=== PATIENT | male | born 1945 | race African-American/Black ===

== ENCOUNTER 2016-10-03 09:25 | Emergency (ER) | payer OTHER ==
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
[2016-10-03] MEDS ORDERED: ACETAMINOPHEN 500 MG TABLET (FP) PO ONE (09:41)
[2016-10-03] MEDS ORDERED: levETIRAcetam 500 MG/5 ML INJECTION VIAL IVPB ONE ×2 (09:41)
[2016-10-03 09:54] VITALS: TEMP 98.9; BMI 27.5
[2016-10-03] MEDS ORDERED: ACETAMINOPHEN 325 MG TABLET (FP) ONE (09:59)
[2016-10-03 10:13] LABS: PH,URINE 8.5 (4.5-8); URINE APPEARANCE Clear; URINE BILIRUBIN Negative (NEGATIVE); URINE BLOOD Trace-intact (NEGATIVE); URINE GLUCOSE (UA) Negative (NEGATIVE); URINE KETONE Negative (NEGATIVE); URINE LEUK ESTERASE Negative (NEGATIVE); URINE NITRITE Negative (NEGATIVE); URINE UROBILINOGEN 1.0 E.U/dl (0.2-1.0)
[2016-10-03 10:15] LABS: URINE COLOR YELLOW; URINE PROTEIN 1+ (NEGATIVE)
[2016-10-03 10:22] LABS: CPK(DFH) 106 IU/L (38-174)
[2016-10-03 10:24] LABS: COCKROFT - GAULT 103.1; CREATININE 0.9 mg/dl (0.6-1.3); MAGNESIUM 1.9 mg/dL (1.8-2.4); PHOSPHOROUS 3.5 mg/dl (2.5-4.6)
[2016-10-03 10:25] LABS: ACTIVATED PTT 31.6 SECONDS (24.0-38.9)
[2016-10-03 10:26] LABS: BASOPHIL 0.9 % (0-2.0); EOSINOPHIL 0.8 % (0-4.5); MCH 34.4 pg (25.7-33.7); MCHC 33.3 g/dl (32.0-35.9); MEAN CELL VOLUME 103.5 fl (80-96); MEAN PLT VOLUME 6.6 fl (7.5-11.1); NEUTROPHILS 62.7 % (42.8-82.8); PLATELET COUNT 537 K/MM3 (134-434); RDW 18.8 % (11.9-15.9); WHITE BLOOD COUNT 3.1 K/mm3 (4.0-10.8)
[2016-10-03 10:30] LABS: INR 1.06 (0.82-1.09); PROTHROMBIN TIME (PATIENT) 11.8 SEC (10.2-13.0)
[2016-10-03 10:42] LABS: TROPONIN I (DFP) < 0.03 ng/ml (0.03-0.50)
[2016-10-03 11:39] LABS: URINE HYALINE CAST 0-1 /lpf
[2016-10-03 12:26] LABS: ANISOCYTOSIS 1+; OVALOCYTES 1+; TEAR DROP CELLS 1+
[2016-10-03 13:25] VITALS: BP 155/92; PULSE 78
== END 2016-10-03 14:09 | disposition home or self-care (01) ==
LOC: FER 09:25
PROC: 3E033GC Introduction of Other Therapeutic Substance into Peripheral Vein, Percutaneous Approach (ICD-10-PCS; principal; 2016-10-03)
DX: R56.9 Unspecified convulsions (principal); Z86.718 Personal history of other venous thrombosis and embolism; Z86.73 Personal history of transient ischemic attack (TIA), and cerebral infarction without residual deficits; I10 Essential (primary) hypertension; Z79.82 Long term (current) use of aspirin; Z87.891 Personal history of nicotine dependence
CPT/HCPCS: 36415; 70450-TC; 71010-TC; 80048; 81003; 81015; 82550; 83735; 84100; 84484; 85025; 85610; 85730; 96374; 99284-25

== ENCOUNTER 2019-12-11 20:19 | Emergency (ER) | payer OTHER ==
[2019-12-11 20:30] VITALS: BP 128/82; PULSE 66; TEMP 97.6; BMI 28.1
--- NOTE | 2019-12-11 21:02 | PDOC ---
History of Present Illness - General Chief Complaint: Syncope/Near Syncope Stated Complaint: SYNCOPE Time Seen by Provider: 12/11/19 20:58 History Source: Patient, Old Records Exam Limitations: No Limitations - History of Present Illness Initial Comments: 74 y/o male presenting to [facility] ER s/p syncopal episode. Pt denies any complaints at time of interview. States he collapsed after leaving a restaurant approx. 1 hr prior to arrival. Unable to recall if he experienced prodromal symptoms. Remained aware he had fallen. Was then able to stand afterward but felt unsteady on his feet for "a little while." Reports meal skipping for the entire day. Drank 3 beers with his meal. Denies tongue biting, fecal incontinence, or urinary incontinence. Older encourage notes report a h/o seizure disorder, but pt states "only had one seizure once" and denies taking any AEDs. Denies any AC prescriptions. Denies recent illness, headache, neck pain, chest pain, SOB, N/V, abd pain, urinary symptoms, diarrhea, or fever. Past History - Medical History Allergies/Adverse Reactions: Allergies Allergy/AdvReac Type Severity Reaction Status Date / Time No Known Allergies Allergy Verified 12/11/19 20:30 Home Medications: Ambulatory Orders Aspirin [ASA -] 81 mg PO DAILY 01/30/14 Anagrelide HCl [Agrylin -] 0.5 mg PO HS 10/03/16 Anagrelide HCl [Agrylin] 1 mg PO DAILY 10/03/16 Hydroxyurea [Hydrea -] 500 mg PO DAILY 10/03/16 Levetiracetam [Keppra] 750 mg PO BID #60 tablet 10/03/16 Anemia: No Asthma: No Cancer: No Cardiac Disorders: No CVA: Yes (06/28/2011) COPD: No CHF: No Dementia: No Diabetes: No GI Disorders: No Disorders: No HTN: Yes Hypercholesterolemia: No Liver Disease: No Seizures: Yes Thyroid Disease: No Comment:: Medical Hx: - Thickened blood managed with Hydroxychloroquine by Dr. Wesley - HTN - HLD - CVA in 2011 with residual right-sided weakness - DVT - Seizure disorder - Surgical History Abdominal Surgery: Yes (R HERNIA REPAIR) Appendectomy: No Cardiac Surgery: No Cholecystectomy: No Lung Surgery: No Neurologic Surgery: No Orthopedic Surgery: No - Immunization History Td Vaccination: Yes Immunization Up to Date: No - Psycho-Social/Smoking History Smoking Status: No Smoking History: Never smoked Have you smoked in the past 12 months: No Number of Cigarettes Smoked Daily: 0 If you are a former smoker, when did you quit?: 1972 Cigars Per Day: 0 'Breaking Loose' booklet given: 10/03/16 - Substance Abuse Hx (Audit-C & DAST Scrn) How often the patient has a drink containing alcohol: 2-3 times / week Number of drinks the patient has on a typical day: 3 or 4 How often the patient has six or more drinks on one occasion: Less than monthly Score: In Men: 4 or > Positive; In Women: 3 or > Positive: 5 Screen Result (Pos requires Nsg. Audit-10AR): Positive In the last yr the pt used illegal drug/Rx for NonMed reason: No Score: Yes response is considered Positive: 0 Screen Result (Positive result requires Nsg. DAST-10): Negative Review of Systems - Review of Systems Able to Perform ROS?: Yes Comments:: 10 point review of systems completed. All systems negative except as noted above. *Physical Exam - Vital Signs Last Vital Signs Temp Pulse Resp BP Pulse Ox 97.6 F 66 18 128/82 96 12/11/19 20:27 12/11/19 20:27 12/11/19 20:27 12/11/19 20:27 12/11/19 20:27 - Physical Exam Vital signs and nursing notes reviewed. Constitutional- Well-developed, well-nourished adult male in no acute distress or obvious discomfort. Found semi-fowlers on hospital bed. Answered all questions appropriately and completely. Head- Normocephalic. No obvious external signs of trauma. Eyes- Pupils PERRL. Sclerae white. Ears- Hearing grossly intact. External auditory canals and tympanic membranes pearly lozoya. No discharge. Nose- No nasal discharge. Throat- Oral cavity and pharynx normal. No inflammation, swelling, exudate, or lesions. No traumatic lesions to tongue. Neck- Supple, trachea is midline. No c-spine tenderness. Able to laterally rota te neck >45 degrees to R and L. Cardiovascular / Chest- Regular rate and regular rhythm. No murmur, rubs, clicks, or gallops. Peripheral pulses- radial pulses full. Respiratory- Breathing unlabored. Speaking in multi-word responses without pausing. Equal chest rise and fall. Clear to auscultation bilaterally. No stridor, no wheezing, no rhonchi. Gastrointestinal- abdomen is soft, non-tender, non-distended. Neuro- Alert and oriented x4. Moving all four extremities spontaneously. No facial asymmetry. No slurred speech. Able to stand unassisted. No obvious difficulty ambulating with cane. MSK- Pelvis stable. No tenderness or laxity with lateral compression. Normal active ROM of right elbow and shoulder. No midline thoracic or lumbar spinal tenderness. Skin- Superficial abrasion to R elbow. No active bleeding. Globally, skin is warm and dry. - No CVA tenderness. Psych- Affect- appropriate. Mood- normal. Speech was non-labored, non- pressured. Dressed and groomed appropriately. Medical Decision Making - Medical Decision Making 74 y/o male presenting s/p syncopal episode with superficial abrasion to his R elbow. Afebrile. Vitals unremarkable for hypotension or tachycardia. Physical exam as described above. EKG unremarkable for ischemic findings. Boostrix administered. R elbow covered with Bacitracin and band aid Pt declined any imaging, laboratory testing, or monitoring. Pt found to be A/Ox4 and of soundSpent approx. 15 min in discussion with the pt regarding his decision to leave. Explained this was against medical advice, and that doing so would put him at risk for further injury, permanent disability, or . Case discussed with ED Attending Dr. Radha Goodrich M.D., PGY2 Emergency Medicine Resident Discharge - Discharge Information Problems reviewed: Yes Clinical Impression/Diagnosis: Abrasion Syncope Qualifiers: Syncope type: unspecified Qualified Code(s): R55 - Syncope and collapse Condition: Good Disposition: AGAINST MEDICAL ADVICE - Admission No - Follow up/Referral - Patient Discharge Instructions Patient Printed Discharge Instructions: DI for Syncope in Adults (Fainting) Additional Instructions: You were seen today after passing out. You declined to have any medical testing performed. This was against medical advice. You were given a tetanus booster and Bacitracin was applied to your right elbow. You should keep the cut clean, dry, and covered for the next few days. You should follow up in the next 1-2 days with your primary care doctor. Passing out is not a normal thing for people to do. Return to the ED for new or worsening symptoms. Print Language: WOLOF - Post Discharge Activity
[2019-12-11] MEDS ORDERED: DIPHTH,PERTUSS(ACELL),TET 0.5 ML DISP.SYRIN IM ONE ×2 (21:27→21:48)
[2019-12-11] MEDS ORDERED: BACITRACIN 15 GM TUBE TOPICAL OINTMENT TP ONE (21:42)
--- NOTE | 2019-12-11 21:45 | PDOC ---
Documentation entered by Kelly Piña SCRIBE, acting as scribe for Mague Garcia MD. Mague Garcia MD: This documentation has been prepared by the mehreenibeWang Ana, SCRIBE, under my direction and personally reviewed by me in its entirety. I confirm that the documentation accurately reflects all work, treatment, procedures, and medical decision making performed by me. 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 per patient he was meeting some friends, hadn't eaten all day, was having few beers with friends, and got up to go to bathroom, urinated. on returning, he suddenly fainted. does not believe he had a seizure. no witnessed siezure like activity by bystanders. felt lightheaded just prior. uncertain regarding loc, but doesnt think he hit his head. sustained abrasion to his right elbow. no confusion or postictal state. no cp no sob. brought to ed by ambulance. pt currently requesting to leave, will be picked up by his , not wanting to stay for labs. Allergies: NKDA 12/11/19 21:[address] Wesley 12/11/19 21:29 12/11/19 21:37 - Physicial Exam PE: 12/11/19 21:41 Awake alert no acute distress head is atraumatic lungs are clear bilaterally heart is regular without murmurs rubs or gallops abdomen is soft nontender extremities are warm well perfused atraumatic and nontender with full range of motion. However the right elbow there is noted to be a superficial abrasion otherwise skin is fully intact neurologically patient is awake alert and oriented x3 he ambulates with a cane on my exam unable to appreciate any weakness patient appears to be 4 out of 4 in all 4 extremities despite his history of previous CVA - Medical Decision Making 12/11/19 21:42 74-year-old male history of thrombocytosis prior CVA hypertension and seizure disorder here today status post syncope versus a seizure. Based on patient's description it sounds more likely to be syncope differential includes dehydration anemia worsening thrombocytosis hypoglycemia other electrolyte abnormality. Plan was EKG basic labs troponin chest x-ray and head CT due to the fact the patient is on a baby aspirin. Much discussion had with the patient who is alert and oriented x3 at this time patient is refusing all imaging and lab work he is aware of the concern for possible dysrhythmia dehydration and possible head trauma as well as cardiac issue states he would like to follow-up with his primary doctor Dr. Wesley. Is agreeable To getting a tetanus shot as he does not know when his last tetanus was Patient will be discharged AGAINST MEDICAL ADVICE Heart Score/ECG Review #1 General ECG Interpretation: Sinus Rhythm, Normal Rate (64), Normal Intervals, No acute ischemic changes Compared to previous ECG there are: Other (left axis. no change since 03/24/13) Discharge - Discharge Information Problems reviewed: Yes Clinical Impression/Diagnosis: Abrasion Syncope Qualifiers: Syncope type: unspecified Qualified Code(s): R55 - Syncope and collapse Condition: Good Disposition: AGAINST MEDICAL ADVICE - Admission No - Follow up/Referral - Patient Discharge Instructions Patient Printed Discharge Instructions: DI for Syncope in Adults (Fainting) Additional Instructions: You were seen today after passing out. You declined to have any medical testing performed. This was against medical advice. You were given a tetanus booster and Bacitracin was applied to your right elbow. You should keep the cut clean, dry, and covered for the next few days. You should follow up in the next 1-2 days with your primary care doctor. Passing out is not a normal thing for people to do. Return to the ED for new or worsening symptoms. Print Language: KENYAN - Post Discharge Activity
[2019-12-11] MEDS ORDERED: BACITRACIN 0.9 GM PACKET ONE (21:47)
--- NOTE | 2019-12-12 17:34 | EKG ---
Test Reason : Blood Pressure : / mmHG Vent. Rate : 064 BPM Atrial Rate : 064 BPM P-R Int : 196 ms QRS Dur : 118 ms QT Int : 470 ms P-R-T Axes : 017 -30 019 degrees QTc Int : 484 ms NORMAL SINUS RHYTHM LEFT AXIS DEVIATION LEFT VENTRICULAR HYPERTROPHY WITH QRS WIDENING NONSPECIFIC T WAVE ABNORMALITY ABNORMAL ECG WHEN COMPARED WITH ECG OF 24-MAR-2013 08:33, NO SIGNIFICANT CHANGE WAS FOUND Confirmed by TIMOTHY HAWKINS, DAVDI ([id number]) on 12/12/2019 5:34:39 PM Referred By: Confirmed By:DAVID AGUIRRE MD
== END 2019-12-11 22:28 | disposition left against medical advice (07) ==
LOC: JER 20:19
PROC: 3E0234Z Introduction of Serum, Toxoid and Vaccine into Muscle, Percutaneous Approach (ICD-10-PCS; principal; 2019-12-11)
DX: R55 Syncope and collapse (principal); S50.311A Abrasion of right elbow, initial encounter; W19.XXXA Unspecified fall, initial encounter
CPT/HCPCS: 90715; 93005; 93010; 99283-25

== ENCOUNTER 2021-03-27 07:55 | Emergency (ER) | payer OTHER ==
[2021-03-27 08:09] VITALS: BP 134/76; PULSE 81; TEMP 98.4; BMI 28.2
[2021-03-27] MEDS ORDERED: DALBAVANCIN HCL 1,500 MG in DEXTROSE 5%-WATER - 500 ML IVPB ONE (09:17)
[2021-03-27] MEDS ORDERED: DALBAVANCIN HCL 500 MG VIAL (RESTRICTED TO ID ONLY) IVPB ONE (09:19)
[2021-03-27] MEDS ORDERED: ACETAMINOPHEN 325 MG TABLET (FP) PO ONE (10:18)
[2021-03-27] MEDS ORDERED: ACETAMINOPHEN 325 MG TABLET (FP) ONE (10:18)
== END 2021-03-27 10:34 | disposition home or self-care (01) ==
LOC: FER 07:55
DX: L03.113 Cellulitis of right upper limb (principal)
CPT/HCPCS: 73130-TC-RT-FY; 99283-25; J0875

== ENCOUNTER 2021-03-29 15:30 | Inpatient (IN) | payer OTHER ==
[2021-03-29] MEDS ORDERED: VANCOMYCIN 1 GM in D5W (PRE-DOCKED) 1,000 MG/250 ML IVPB ONE (16:14)
[2021-03-29] MEDS ORDERED: AMPICILLIN NA/SULBACTAM NA 3 GM in SODIUM CHLORIDE 100 ML IVPB ONE (16:30)
[2021-03-29] MEDS ORDERED: VANCOMYCIN 1,000 MG VIAL (RESTRICTED TO ID ONLY) ONE (16:33)
[2021-03-29] MEDS ORDERED: AMPICILLIN NA/SULBACTAM NA 3 GM VIAL ONE ×2 (16:34→23:11)
[2021-03-29 16:42] LABS: BASO % 4.2 % (0-2.0); EOS % 0.8 % (0-4.5); HEMATOCRIT 32.1 % (35.4-49); HEMOGLOBIN 10.4 GM/dl (11.7-16.9); LYMPH % 21.6 % (8-40); MCH 30.5 pg (25.7-33.7); MCHC 32.4 g/dl (32.0-35.9); MEAN CELL VOLUME 94.3 fl (80-96); MEAN PLT VOLUME 7.7 fl (7.5-11.1); MONO % 14.1 % (3.8-10.2); NEUT % 59.3 % (42.8-82.8); PLATELET COUNT 689 10^3/uL (134-434); RDW 18.4 % (11.9-15.9); WHITE BLOOD COUNT 5.3 K/mm3 (4.0-10.8)
[2021-03-29 16:58] LABS: ALBUMIN 3.7 g/dl (3.4-5.0); CALCIUM 8.5 mg/dl (8.5-10); CREATININE 1.2 mg/dl (0.55-1.3); TOT PROT 7.7 g/dl (6.4-8.2)
[2021-03-29 20:40] VITALS: BMI 27.6
[2021-03-29] MEDS ORDERED: ACETAMINOPHEN 325 MG TABLET (FP) PO PRN (21:51)
[2021-03-29] MEDS ORDERED: SODIUM CHLORIDE 100 ML IVPB ONE (23:12)
[2021-03-29] MEDS: AMPICILLIN NA/SULBACTAM NA 3 GM in SODIUM CHLORIDE 100 ML IVPB SCH (23:22)
[2021-03-30] MEDS ORDERED: SODIUM CHLORIDE 100 ML IVPB ONE ×3 (05:58→15:30)
[2021-03-30] MEDS ORDERED: AMPICILLIN NA/SULBACTAM NA 3 GM VIAL ONE ×3 (05:58→15:30)
[2021-03-30] MEDS: AMPICILLIN NA/SULBACTAM NA 3 GM in SODIUM CHLORIDE 100 ML IVPB SCH ×3 (06:00→18:51)
[2021-03-30 08:07] LABS: BASO % 2.1 % (0-2.0); EOS % 0.9 % (0-4.5); HEMATOCRIT 31.3 % (35.4-49); HEMOGLOBIN 9.9 GM/dl (11.7-16.9); LYMPH % 26.7 % (8-40); MCH 30.2 pg (25.7-33.7); MCHC 31.8 g/dl (32.0-35.9); MEAN PLT VOLUME 7.2 fl (7.5-11.1); NEUT % 56.3 % (42.8-82.8); PLATELET COUNT 621 10^3/uL (134-434); RBC 3.29 M/mm3 (4.00-5.60); RDW 18.4 % (11.9-15.9)
[2021-03-30 08:10] LABS: ADD RBC MORPHOLOGY YES
[2021-03-30 08:15] LABS: ALBUMIN 3.3 g/dl (3.4-5.0); BILIRUBIN,TOTAL 0.8 mg/dl (0.2-1); CALCIUM 8.5 mg/dl (8.5-10); CREATININE 1.2 mg/dl (0.55-1.3); TOT PROT 6.9 g/dl (6.4-8.2)
[2021-03-30 09:00] LABS: ANISOCYTOSIS 2+
[2021-03-30 09:02] LABS: PLATELET ESTIMATE INCREASED
[2021-03-30] MEDS: ASPIRIN COATED 81 MG TABLET.EC PO SCH (09:59)
[2021-03-30] MEDS: amLODIPine BESYLATE 10 MG TABLET (FP) PO SCH (09:59)
[2021-03-30] MEDS: HYDROXYUREA 500 MG CAPSULE PO SCH (09:59)
[2021-03-30] MEDS: TRIAMTERENE AND HCTZ - 37.5 MG/25 MG CAPSULE PO SCH (10:00)
[2021-03-30] MEDS: VANCOMYCIN 1 GRAM (PRE-DOCKED) 1 GM/250 ML BAG IVPB SCH ×2 (11:00→21:34)
[2021-03-30] MEDS: INDOMETHACIN 25 MG CAPSULE PO SCH (21:03)
[2021-03-31] MEDS ORDERED: AMPICILLIN NA/SULBACTAM NA 3 GM VIAL ONE ×2 (00:13→05:07)
[2021-03-31] MEDS ORDERED: SODIUM CHLORIDE 100 ML IVPB ONE ×2 (00:13→05:07)
[2021-03-31] MEDS: AMPICILLIN NA/SULBACTAM NA 3 GM in SODIUM CHLORIDE 100 ML IVPB SCH ×2 (00:26→05:12)
[2021-03-31] MEDS: INDOMETHACIN 25 MG CAPSULE PO SCH (05:12)
[2021-03-31 05:15] VITALS: TEMP 97.7
[2021-03-31] MEDS: HYDROXYUREA 500 MG CAPSULE PO SCH (10:09)
[2021-03-31] MEDS: ASPIRIN COATED 81 MG TABLET.EC PO SCH (10:09)
[2021-03-31] MEDS: TRIAMTERENE AND HCTZ - 37.5 MG/25 MG CAPSULE PO SCH (10:09)
[2021-03-31] MEDS: amLODIPine BESYLATE 10 MG TABLET (FP) PO SCH (10:09)
[2021-03-31 10:12] VITALS: BP 125/75; PULSE 62
== END 2021-03-31 11:30 | disposition home or self-care (01) | DRG 554 ==
LOC: SUPCPDRO 15:30 → FER 15:30 → FM/S 17:56
PROVIDERS: ADMIT Specialist; ATTEND Specialist
DX: M10.041 Idiopathic gout, right hand (principal); L03.113 Cellulitis of right upper limb; D68.59 Other primary thrombophilia; I69.351 Hemiplegia and hemiparesis following cerebral infarction affecting right dominant side; I10 Essential (primary) hypertension; G40.909 Epilepsy, unspecified, not intractable, without status epilepticus
CPT/HCPCS: 36415; 80053; 84550; 85025; 85651; 86140; 87040; 99285-25; C9803; J8999; U0003; U0005

== ENCOUNTER 2022-09-30 17:13 | Emergency (ER) | payer OTHER ==
[2022-09-30] MEDS ORDERED: SODIUM CHLORIDE 0.9% 500 ML INFUS.BAG IV ONE (17:43)
[2022-09-30 18:09] VITALS: BP 110/57; PULSE 70; RESP 17; TEMP 98.2; BMI 28.7
[2022-09-30 19:08] LABS: BASO % 1.1 % (0-2.0); EOS % 1.1 % (0-4.5); HEMATOCRIT 29.9 % (35.4-49); HEMOGLOBIN 9.9 GM/dL (11.7-16.9); LYMPH % 14.8 % (8-40); MCH 28.6 pg (25.7-33.7); MCHC 33.1 g/dl (32.0-35.9); MEAN CELL VOLUME 86.3 fl (80-96); MEAN PLT VOLUME 7.3 fl (7.5-11.1); MONO % 16.5 % (3.8-10.2); NEUT % 66.5 % (42.8-82.8); PLATELET COUNT 688 10^3/uL (134-434); RBC 3.46 M/mm3 (4.00-5.60); RDW 18.8 % (11.9-15.9); WHITE BLOOD COUNT 6.4 K/mm3 (4.0-10.0)
[2022-09-30 19:28] LABS: CALCIUM 8.9 mg/dL (8.5-10.1)
[2022-09-30 19:29] LABS: ALBUMIN 3.3 g/dl (3.4-5.0); BLOOD UREA NITROGEN 20.8 mg/dL (7-18)
[2022-09-30 19:33] LABS: CREATININE 1.5 mg/dL (0.55-1.3); TOT PROT 7.6 g/dl (6.4-8.2)
[2022-09-30 19:35] LABS: BILIRUBIN,TOTAL 1.3 mg/dL (0.2-1)
== END 2022-09-30 20:18 | disposition home or self-care (01) ==
LOC: JER 17:13
DX: R53.1 Weakness (principal); E86.0 Dehydration; T67.5XXA Heat exhaustion, unspecified, initial encounter; Z20.822 Contact with and (suspected) exposure to COVID-19
CPT/HCPCS: 0241U-QW; 36415; 71045-TC-FY; 80053; 83690; 84484; 85025; 93005; 93010; 99285-25